=== PATIENT | male | born 1960 | race Caucasian/White ===

== ENCOUNTER 2020-09-25 13:17 | Emergency (ER) | payer MEDICAID, SELFPAY ==
[2020-09-25 13:18] VITALS: BP 158/106; PULSE 92; RESP 20; TEMP 36.6; O2SAT 95; BMI 20.3
[2020-09-25 13:31] VITALS: BP 134/113
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
[2020-09-25 13:55] VITALS: BP 150/103; PULSE 90; RESP 20; TEMP 36.6; O2SAT 95
== END 2020-09-25 13:57 ==
PROVIDERS: Emergency Provider Emergency Medicine; PCP Nurse Practitioner Family
DX: S50.812A Abrasion of left forearm, initial encounter (principal); S80.812A Abrasion, left lower leg, initial encounter; W18.39XA Other fall on same level, initial encounter; Y92.488 Other paved roadways as the place of occurrence of the external cause; I10 Essential (primary) hypertension; F17.210 Nicotine dependence, cigarettes, uncomplicated
CPT/HCPCS: 99282